=== PATIENT | male | born 1980 | race Caucasian/White ===

== ENCOUNTER 2023-01-12 18:42 | Emergency (ER) | payer SELFPAY ==
[~2023-01-12] VITALS: Ht 177.8 cm; Wt 90.7 kg
[2023-01-12 18:58] VITALS: BP 133/79
--- NOTE | 2023-01-12 19:37 | NUR ---
TO BED 9 FROM LOBBY
--- NOTE | 2023-01-12 19:45 | NUR ---
PT RESTING IN BED, AOX4, CHEST RISING AND FALLS SYMETRICAL, NO C/O PAIN OR S/S DISTRESS, PT ON MONITOR Addendum: 01/12/23 at 1945 by [email or web address] PT RESTING IN BED, AOX4, CHEST RISING AND FALLS SYMETRICAL, NO S/S DISTRESS, PT ON MONITOR
[2023-01-12] MEDS ORDERED: IBUPROFEN 600 MG TAB PO ONE (19:55)
--- NOTE | 2023-01-12 20:14 | NUR ---
RAD AT BEDSIDE
[2023-01-12] MEDS ORDERED: BACITRACIN OINT 500 UNITS/GM PKT TP ONE (20:40)
--- NOTE | 2023-01-12 21:06 | NUR ---
PT RESTING IN BED, AOX4, CHEST RISING AND FALLS SYMETRICAL, NO C/O PAIN OR S/S DISTRESS, PT ON MONITOR Addendum: 01/12/23 at 2107 by [email or web address] PT RESTING IN BED, A/OX4, CHEST RISING AND FALLS SYMETRICAL, NO C/O PAIN OR S/S DISTRESS, PT ON MONITOR
[2023-01-12] MEDS ORDERED: CEPH-588 PO (21:11)
[2023-01-12] MEDS ORDERED: BACI-105 TP (21:11)
[2023-01-12] MEDS ORDERED: cephALEXin 500 MG CAP PO ONE (21:15)
[2023-01-12] MEDS ORDERED: cephALEXin 500 MG CAP ONE (21:16)
[2023-01-12 21:27] VITALS: BP 115/65
== END 2023-01-12 21:28 | disposition home or self-care (01) ==
LOC: MED 18:42
DX: S61.431A Puncture wound without foreign body of right hand, initial encounter (principal); Z79.2 Long term (current) use of antibiotics; W29.8XXA Contact with other powered hand tools and household machinery, initial encounter; Y92.89 Other specified places as the place of occurrence of the external cause; Y93.89 Activity, other specified; Y99.8 Other external cause status
CPT/HCPCS: 73130; 90471; 90715; 99284